=== PATIENT | female | born 1950 | race Hispanic/Latino ===

== ENCOUNTER 2017-04-30 10:41 | Inpatient (IN) | payer MEDICARE, BC ==
[2017-04-30 11:05] VITALS: BMI 22.1
--- NOTE | 2017-04-30 11:06 | ED PDOC ---
Arrival/HPI - General Historian: Patient - History of Present Illness Time/Duration: 4-6 hours Symptom Onset: Sudden Context: Tripped - General Chief Complaint: Trauma Time Seen by Provider: 04/30/17 10:44 - History of Present Illness Narrative History of Present Illness (Text): 04/30/17 11:02 66F w/no sig PMH evaluated s/p mechanical fall at approx 9am on day of evaluation. Pt reports missing top step of her outside/concrete steps, falling forward onto her porch with trauma to left eye with laceration and left upper extremity trauma. Pt went inside, cleaned up laceration and reported to ED. Admits to positional left upper extremity pain, "floppiness". Denies LOC, dizziness, GIRON, vision changes, history of falls, N/V/F/C, SOB, other complaints. PMH: Denies PSH: Denies All: Tetanus vaccine SH: 1/2ppd tobacco use x 20+ yrs, denies ETOH or illicit drugs (Toña Lou) Past Medical History - Provider Review Nursing Documentation Reviewed: Yes - Past History Past History: Non-Contributing - Tetanus Immunization Tetanus Immunization: Allergy to Tetanus Vaccine, Refused Family/Social History - Physician Review Nursing Documentation Reviewed: Yes Family/Social History: No Known Family HX Smoking Status: Heavy Smoker > 10 Cigarettes Daily Hx Alcohol Use: No Hx Substance Use: No Allergies/Home Meds Allergies/Adverse Reactions: Allergies Tetanus Vaccines and Toxoid Allergy (Intermediate, Verified 04/30/17 11:09) URTICARIA Home Medications: Home Meds Medication Instructions Recorded Confirmed Albuterol HFA [Ventolin HFA 90 1 puff INH PRN PRN 04/30/17 04/30/17 mcg/actuation (8 g)] Fluticasone/Salmeterol 100/50 1 puff PRN PRN 04/30/17 04/30/17 [Advair Diskus 100/50] Review of Systems - Physician Review All systems were reviewed & negative as marked: Yes - Review of Systems Constitutional: Normal Eyes: Normal ENT: Normal Respiratory: Normal Cardiovascular: Normal Gastrointestinal: Normal Musculoskeletal: Other (unable to move Left arm). absent: Normal Skin: Laceration (left eyebrow) Neurological: absent: Headache, Dizziness Physical Exam Vital Signs Reviewed: Yes Temperature: Afebrile Blood Pressure: Normal Pulse: Regular Respiratory Rate: Normal Appearance: Positive for: Non-Toxic, Comfortable Pain Distress: Mild Mental Status: Positive for: Alert and Oriented X 3 - Systems Exam Head: Present: Laceration (left lateral orbit). No: Atraumatic, Tenderness, Swelling, Ecchymosis, Abrasion Extroacular Muscles: Present: EOMI Conjunctiva: Present: Normal Ears: Present: Normal Mouth: Present: Moist Mucous Membranes Nose (External): Present: Atraumatic Neck: Present: Normal Range of Motion Respiratory/Chest: Present: Clear to Auscultation, Good Air Exchange. No: Respiratory Distress, Accessory Muscle Use Cardiovascular: Present: Regular Rate and Rhythm, Normal S1, S2. No: Murmurs Abdomen: Present: Normal Bowel Sounds. No: Tenderness, Distention, Peritoneal Signs Back: Present: Normal Inspection Upper Extremity: Present: Swelling (lateral aspect of left arm). No: Normal Inspection, Cyanosis, Edema, Normal ROM (decreased), Tenderness Lower Extremity: Present: Normal Inspection. No: Edema Neurological: Present: GCS=15, CN II-XII Intact, Speech Normal, Motor Func Grossly Intact Skin: Present: Warm, Dry, Laceration (left lateral orbit- stellate, 4 cm). No: Rashes, Normal Color Psychiatric: Present: Alert, Oriented x 3, Normal Insight, Normal Concentration Vital Signs Temp Pulse Resp BP Pulse Ox 04/30/17 13:40 98 H 18 119/77 100 04/30/17 11:05 98.3 F 83 18 100 04/30/17 11:04 18 Medical Decision Making ED Course and Treatment: Patient Seen With Resident: In agreement with resident note which contains more details about the patient. Patient was seen and evaluated with resident. Came up with plan and treatment together. (Marty Maldonado) 04/30/17 11:28 will image left upper extremity, then will close left orbital laceration. 04/30/17 13:41 laceration of left eyebrow closed with running subcuticular suture. X-rays of Left humerus with Oblique comminuted displaced fracture, consulted ortho. Awaiting call back. 04/30/17 14:[address] Ferreira who requests patient attend his office tomorrow for evaluation, pt is to sleep sitting up, ice area and have extremity placed in sling without any weight on elbow. 04/30/17 14:31 Pt requesting another ortho opinion- would like to have intervention today. Changed ortho consult to Dr. Coronado as per patient's request. Spoke with Dr. Coronado who requested pt have posterior split applied to Left extremity, will review imaging and make further recommendations after review. 04/30/17 15:[address] Hernadez who accepts patient to his service for admission. Pt to be pre-op'd for possible OR tomorrow with Dr. Coronado. 04/30/17 15:43 Spoke with resident for admission to [facility]'s service- will come do admission H & P. Spoke with patient, she verbalizes understanding of need for admission. (Toña Lou) - RAD Interpretation Radiology Orders: 04/30/17 11:14 FOREARM LEFT [RAD] Stat HUMERUS LEFT [RAD] Stat SHOULDER LEFT [RAD] Stat 04/30/17 11:25 Brain [HEAD W/O CONTRAST] [CT] Stat 04/30/17 15:05 CXR [CHEST PORTABLE] [RAD] Routine - Medication Orders Current Medication Orders: Albuterol/Ipratropium (Duoneb 3 Mg/0.5 Mg (3 Ml) Ud) 3 ml IH [id number] Discontinued Medications Ketorolac Tromethamine (Toradol) 30 mg IVP STAT STA Stop: 04/30/17 15:23 Last Admin: 04/30/17 15:39 Dose: 30 mg Lidocaine/Epinephrine (Lidocaine 1%/Epinephrine 1:[id number] 30 Ml) 10 ml IJ STAT STA Stop: 04/30/17 11:17 Last Admin: 04/30/17 11:26 Dose: 10 ml Comments: given by ER MD for suturing Procedure: Wound Repair - Time Performed Time Performed: 12:45 - Time Out Time Out: Side verified, Site verified, Patient ID confirmed, Sterile procedures obs. - Consent Obtained Consent obtained: Verbal - Performed by Performed by: Mid-level Provider - Indications Indication(s):: Laceration - Location Location:: Left, Face, Eyebrow Shape:: Stellate Dimensions Length cm: 4cm Dimensions width cm: 0.5cm Depth:: Subcutaneous fascia - Anesthetic Technique Anesthetic Technique: Local Local/Regional Anesthetic:: Lidocaine 1% w/epi - Debris Debris:: None - Irrigated Irrigated with ml of normal saline: 300 - Complexity Complexity:: Intermediate (2 layer) - Wound repair method Sutures:: # (4), Size (5), Type (chromic), Technique (running subcuticular) Barbi:: Steri-strips - Muscle repiar layer closed with Muscle repair layer closed with:: Tetanus NA (allergic) - Complications Complications: none - Patient tolerated procedure Patient Tolerated Procedure:: Well Disposition/Present on Arrival - Present on Arrival Any Indicators Present on Arrival: No History of DVT/PE: No Urinary Catheter: No History of Decub. Ulcer: No - Disposition Have Diagnosis and Disposition been Completed?: Yes Disposition Time: 14:05 Patient Plan: Discharge - Disposition Diagnosis: Fall (on) (from) other stairs and steps, initial encounter, Laceration of left eyebrow, Fracture of left upper extremity Disposition: HOME/ ROUTINE Patient Problems: Current Active Problems Problem Status Onset Fall (on) (from) other stairs and steps, initial encounter Acute Laceration of left eyebrow Acute Fracture of left upper extremity Acute Condition: STABLE Discharge Instructions (ExitCare): Arm Fracture in Adults (ED), Care For Your Absorbable Stitches (ED), Facial Laceration (ED) Additional Instructions: Sleep sitting up, do not place weight on left elbow. Apply ice to affected area. Call Dr. Ferreira's office for appointment. Please wear sling until you are evaluated. Referrals: PCP,NO [Non-Staff] - Follow up with primary Dwain Ferreira DO [Staff Provider] - Follow up with primary Forms: [email or web address] (Turkmen), WORK NOTE
[2017-04-30] MEDS ORDERED: Lidocaine 1%/Epinephrine 1:100000 30 ml vial IJ STA (11:16)
--- NOTE | 2017-04-30 12:23 | CT ---
PROCEDURE: CT HEAD WITHOUT CONTRAST. HISTORY: fall COMPARISON: None available. TECHNIQUE: Axial computed tomography images were obtained through the head/brain without intravenous contrast. Radiation dose: Total exam DLP = 725.71 mGy-cm. This CT exam was performed using one or more of the following dose reduction techniques: Automated exposure control, adjustment of the mA and/or kV according to patient size, and/or use of iterative reconstruction technique. FINDINGS: HEMORRHAGE: No intracranial hemorrhage. BRAIN: Normal souza-white matter differentiation and density are appreciated throughout the cerebrum cerebellum and brainstem. There is no mass effect. There is no suspicious extra-axial fluid collection in the midline brain anatomy appears diffusely unremarkable. VENTRICLES: Unremarkable. No hydrocephalus. CALVARIUM: Unremarkable. PARANASAL SINUSES: Mild left maxillary sinusitis identified. MASTOID AIR CELLS: Unremarkable as visualized. No inflammatory changes. OTHER FINDINGS: None. IMPRESSION: Normal CT of the Head. Instill note is made of mild left maxillary sinusitis.
--- NOTE | 2017-04-30 12:45 | RAD ---
PROCEDURE: Radiographs of the Left Shoulder HISTORY: s/p mechanical fall COMPARISON: No prior. FINDINGS: BONES: There is an obliquely oriented displaced comminuted fracture of the proximal shaft of the humerus. The shoulder is otherwise intact JOINTS: Normal. Glenohumeral and acromioclavicular joints preserved. No osteoarthritis. SOFT TISSUES: Normal. OTHER FINDINGS: None. IMPRESSION: There is an obliquely oriented displaced comminuted fracture of the proximal shaft of the humerus. The shoulder is otherwise intact
--- NOTE | 2017-04-30 12:46 | RAD ---
PROCEDURE: Radiographs of the left humerus. HISTORY: s/p mechanical fall COMPARISON: None. FINDINGS: BONES: Obliquely oriented comminuted displaced fracture of the mid humerus SOFT TISSUES: Normal. OTHER FINDINGS: None. IMPRESSION: Obliquely oriented comminuted displaced fracture of the mid humerus
--- NOTE | 2017-04-30 12:47 | RAD ---
PROCEDURE: Radiographs of the Left Forearm HISTORY: s/p [facility] [place] fall COMPARISON: None available. TECHNIQUE: Frontal and lateral views obtained. FINDINGS: BONES: No fracture or destructive lesion. JOINT SPACES: Unremarkable. OTHER FINDINGS: None. IMPRESSION: Unremarkable radiographs of the left forearm.
--- NOTE | 2017-04-30 16:29 | CP.PCM.HP ---
History of Present Illness - History of Present Illness History of Present Illness: Patient is a 66 year old female with past medical history of asthma, s/p R mastectomy with chemo/radiation presents to ED after having a mechanical fall outside of her home. States that she went to take out the garbage and on her way back to her home, she tripped over the top step, fell forward and hit the left side of her head and arm on a brick wall. Denies any loss of consciousness. Patient was able to get up and call her daughter for assistance. Patient denies headache, dizziness, sob, cp, palpitations, abdominal pain, numbness/tingling, loss of sensation, loss of bowel and bladder function, urinary symptoms, changes in bowel habits. 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[place] [place] Present on Admission - Present on Admission Any Indicators Present on Admission: No Review of Systems - Review of Systems All systems: reviewed and no additional remarkable complaints except - Constitutional Constitutional: absent: Chills, Fatigue, Fever, Headache, Weakness - EENT Eyes: absent: Blurred Vision, Change in Vision Ears: absent: Decreased Hearing, Dizziness - Cardiovascular Cardiovascular: absent: Chest Pain, Diaphoresis, Dyspnea, Lightheadedness, Palpitations - Respiratory Respiratory: absent: Cough, Dyspnea, Wheezing - Gastrointestinal Gastrointestinal: absent: Abdominal Pain, Constipation, Diarrhea, Nausea, Vomiting - Genitourinary Genitourinary: absent: Difficulty Urinating, Dysuria, Urinary Frequency - Musculoskeletal Musculoskeletal: absent: Numbness, Tingling - Neurological Neurological: absent: Confusion, Dizziness, Numbness, Headaches, Syncope, Weakness - Psychiatric Psychiatric: absent: Anxiety, Confusion, Depression Past Patient History - Tetanus Immunizations Tetanus Immunization: Allergy to Tetanus Vaccine, Refused - Past Social History Smoking Status: Heavy Smoker > 10 Cigarettes Daily - CARDIAC Hx Cardiac Disorders: No - PULMONARY Hx Asthma: Yes - NEUROLOGICAL Hx Neurological Disorder: No - HEENT Hx HEENT Problems: No - RENAL Hx Chronic Kidney Disease: No - ENDOCRINE/METABOLIC Hx Endocrine Disorders: No - HEMATOLOGICAL/ONCOLOGICAL Hx Blood Disorders: No - INTEGUMENTARY Hx Dermatological Problems: No - MUSCULOSKELETAL/RHEUMATOLOGICAL Hx Musculoskeletal Disorders: No - GASTROINTESTINAL Hx Gastrointestinal Disorders: No - GENITOURINARY/GYNECOLOGICAL Hx Genitourinary Disorders: No - PSYCHIATRIC Hx Substance Use: No - SURGICAL HISTORY Hx Mastectomy: Yes (right breast) Meds Allergies/Adverse Reactions: Allergies Allergy/AdvReac Type Severity Reaction Status Date / Time Tetanus Vaccines and Toxoid Allergy Intermediate URTICARIA Verified 04/30/17 11: 09 Physical Exam - Constitutional Appears: Well, No Acute Distress - Head Exam Head Exam: ATRAUMATIC, NORMAL INSPECTION - Eye Exam Eye Exam: EOMI, Normal appearance Pupil Exam: NORMAL ACCOMODATION - ENT Exam ENT Exam: Mucous Membranes Moist Additional comments: Laceration to L perioribtal area that has been sutured Laceration is clear/dry/intact with steristrips Bruising noted in the L temporal region - Respiratory Exam Respiratory Exam: Clear to Auscultation Bilateral, NORMAL BREATHING PATTERN. absent: Rales, Rhonchi, Wheezes - Cardiovascular Exam Cardiovascular Exam: REGULAR RHYTHM, +S1, +S2. absent: Systolic Murmur - GI/Abdominal Exam GI & Abdominal Exam: Normal Bowel Sounds, Soft. absent: Firm, Guarding, Rebound , Rigid, Tenderness - Rectal Exam Rectal Exam: Deferred - Extremities Exam Additional comments: L arm in posterior splint +radial pulses B/L - Back Exam Back exam: NORMAL INSPECTION - Neurological Exam Neurological exam: Alert, CN II-XII Intact, Oriented x3 - Psychiatric Exam Psychiatric exam: Normal Affect, Normal Mood - Skin Skin Exam: Dry, Normal Color, Warm Results - Vital Signs Recent Vital Signs: Last Vital Signs Temp 98.3 F 04/30/17 11:05 Pulse 98 H 04/30/17 13:40 Resp 18 04/30/17 13:40 BP 119/77 04/30/17 13:40 Pulse Ox 100 04/30/17 13:40 - Labs Result Diagrams: 04/30/17 17:50 Assessment & Plan - Assessment and Plan (Free Text) Assessment: 66 year old female with past medical history of asthma, s/p R mastectomy presents s/p mechanical fall outside her home. CT head only showing L maxillary sinusitis. Shoulder/Humerus xray showing obliquely oreintated displaced comminuted fracture of proximal shaft of the humerus. Plan: 1. L Humerus Fracture -Stable, afebrile -Pain control prn - Toradol, morphine -Ortho on consult, possible surgery tomorrow -NPO after midnight -Labs ordered: CBC, CMP, PT/PTT, beta HCG -F/U CXR and EKG 2. History of Asthma -Duonebs prn GI/DVT ppx -Protonix -SCDs
--- NOTE | 2017-04-30 17:06 | RAD ---
HISTORY: preop - humurus fx COMPARISON: No prior. FINDINGS: LUNGS: No active pulmonary disease. PLEURA: No significant pleural effusion identified, no pneumothorax apparent. CARDIOVASCULAR: Normal. OSSEOUS STRUCTURES: No significant abnormalities. VISUALIZED UPPER ABDOMEN: Normal. OTHER FINDINGS: Surgical clips in the right chest wall or lung inferolaterally. IMPRESSION: No acute infiltrate or pleural effusion. No pneumothorax bilaterally. Surgical clips in the right chest wall or right lung base laterally.
[2017-04-30 18:26] LABS: ALB/GLOB RATIO 1.7 (1.1-1.8); ALKALINE PHOSPHATASE 88 U/L (38-126); ALT/SGPT 44 U/L (7-56); AST/SGOT 32 U/L (14-36); BILIRUBIN,TOTAL 0.6 mg/dL (0.2-1.3); BLOOD UREA NITROGEN 16 mg/dL (7-21); CALCIUM 9.5 mg/dL (8.4-10.5); CARBON DIOXIDE 24 mmol/L (21-33); CHLORIDE 107 mmol/L (98-107); GFR AFRICAN-AMERICAN > 60; GLUCOSE,RANDOM 109 mg/dL (70-110); POTASSIUM 4.3 mmol/L (3.6-5.0); SODIUM 138 mmol/L (132-148); TOTAL PROTEIN 6.4 g/dL (5.8-8.3)
[2017-04-30] MEDS: Morphine 2 mg/ml ISec IM PRN (21:49)
[2017-04-30] MEDS ORDERED: Pneumococcal 23-Valent Vaccine IM ONE (22:14)
[2017-05-01] MEDS: Albuterol-Ipratrop 3 mg / 0.5 (3 ml) UD IH SCH ×4 (02:06→19:27)
[2017-05-01] MEDS: Morphine 2 mg/ml ISec IM PRN ×3 (02:57→21:28)
[2017-05-01] MEDS: Pantoprazole 40 mg EC Tab PO SCH (05:07)
[2017-05-01 07:18] LABS: MEAN CORPUSCULAR HGB CONC 32.3 g/dl (31.0-37.0); MEAN PLATELET VOLUME 8.7 fl (7.0-11.0); RED CELL DISTRIBUTION WIDTH 13.5 % (11.5-14.5); WHITE BLOOD COUNT 8.7 10^3/ul (4.5-11.0)
[2017-05-01 08:26] LABS: URINE BILIRUBIN NEGATIVE (NEGATIVE); URINE BLOOD SMALL (NEGATIVE); URINE GLUCOSE (UA) NEGATIVE (NEGATIVE); URINE KETONE NEGATIVE (NEGATIVE); URINE LEUKOCYTE ESTERASE SMALL Leu/uL (NEGATIVE); URINE PROTEIN 30 mg/dL (<30 mg/dL); URINE UROBILINOGEN 0.2 E.U./dL (<1 E.U./dL)
[2017-05-01 08:27] LABS: URINE APPEARANCE CLEAR (CLEAR); URINE COLOR YELLOW (YELLOW)
[2017-05-01 08:39] LABS: BLOOD UREA NITROGEN 18 mg/dL (7-21); CALCIUM 8.9 mg/dL (8.4-10.5); CARBON DIOXIDE 26 mmol/L (21-33); CHLORIDE 107 mmol/L (98-107); GFR AFRICAN-AMERICAN > 60; GLUCOSE,RANDOM 93 mg/dL (70-110); POTASSIUM 3.7 mmol/L (3.6-5.0); SODIUM 141 mmol/L (132-148)
[2017-05-01 08:50] LABS: URINE BACTERIA FEW (NEG); URINE RBC 0 - 2 /hpf (0-2); URINE WBC TNTC /hpf (0-6)
--- NOTE | 2017-05-01 09:44 | CARD ---
APPROVED REPORT EKG Measurement Heart [id number] <Conclusion> Normal sinus rhythm Possible Anterolateral infarct, age undetermined Abnormal ECG
--- NOTE | 2017-05-01 12:45 | CP.PCM.PN ---
Subjective - Date & Time of Evaluation Date of Evaluation: 05/01/17 Time of Evaluation: 07:00 - Subjective Subjective: Patient is a 66 year old female with past medical history of asthma, s/p R mastectomy with chemo/radiation presents to ED after having a mechanical fall outside of her home. States that she went to take out the garbage and on her way back to her home, she tripped over the top step, fell forward and hit the left side of her head and arm on a brick wall. Denies any loss of consciousness. Patient was able to get up and call her daughter for assistance. Patient was seen and evaluated bedside. Patient states decreased pain in the shoulder because of the pain medicine. Patient denies headache, dizziness, sob, cp, palpitations, abdominal pain, numbness/tingling, loss of sensation, loss of bowel and bladder function, urinary symptoms, changes in bowel habits or any other complaints. Patient is aware of the plan for surgery today. Objective - Vital Signs/Intake and Output Vital Signs (last 24 hours): Temp Pulse Resp BP Pulse Ox 99.0 F 75 18 110/52 L 97 05/01/17 08:00 05/01/17 08:00 05/01/17 08:00 05/01/17 08:00 05/01/17 08:00 Intake and Output: 05/01/17 05/01/17 06:59 18:59 Intake Total 480 Balance 480 - Medications Medications: Current Medications Albuterol/Ipratropium (Duoneb 3 Mg/0.5 Mg (3 Ml) Ud) 3 ml IH [id number] [facility] Last Admin: 05/01/17 07:39 Dose: 3 ml Ketorolac Tromethamine (Toradol) 15 mg IM Q6 PRN PRN Reason: Pain, moderate (4-7) Stop: 05/05/17 20:06 Last Admin: 05/01/17 08:18 Dose: 15 mg Morphine Sulfate (Morphine) 2 mg IM Q4H PRN PRN Reason: Pain, severe (8-10) Last Admin: 05/01/17 11:10 Dose: 2 mg Ondansetron HCl (Zofran Odt) 4 mg PO Q4H PRN PRN Reason: Nausea/Vomiting Pantoprazole Sodium (Protonix Ec Tab) 40 mg PO 0600 [facility] Last Admin: 05/01/17 05:07 Dose: Not Given - Labs Labs: 05/01/17 07:09 05/01/17 07:09 - Constitutional Appears: No Acute Distress - Head Exam Head Exam: ATRAUMATIC, NORMAL INSPECTION, NORMOCEPHALIC - Eye Exam Eye Exam: EOMI, Normal appearance - ENT Exam ENT Exam: Mucous Membranes Moist - Neck Exam Neck Exam: Normal Inspection. absent: Lymphadenopathy - Respiratory Exam Respiratory Exam: Wheezes, NORMAL BREATHING PATTERN - Cardiovascular Exam Cardiovascular Exam: REGULAR RHYTHM, +S1, +S2 - Extremities Exam Additional comments: unable to move left arm due to pain from fracture - Back Exam Back Exam: NORMAL INSPECTION - Neurological Exam Neurological Exam: Alert, Awake, Oriented x3 - Psychiatric Exam Psychiatric exam: Normal Mood Assessment and Plan - Assessment and Plan (Free Text) Assessment: 66 year old female with past medical history of asthma, s/p R mastectomy presents s/p mechanical fall outside her home. CT head only showing L maxillary sinusitis. Shoulder/Humerus xray showing obliquely oriented displaced comminuted fracture of proximal shaft of the humerus. Patient will undergoe surgery to correct fracture. Plan: 1. L Humerus Fracture -Stable, afebrile -Pain control prn - Toradol, morphine -NPO -Ortho on consult, surgery later on today -Labs ordered: CBC, CMP, PT/PTT, beta HCG 2. History of Asthma -Duonebs prn GI/DVT ppx -Protonix -SCDs
[2017-05-01] MEDS ORDERED: Bupivacaine 0.5% Inj(30mL) ONE (15:17)
[2017-05-01] MEDS ORDERED: Propofol 10 mg/ml Inj (20 ML) ONE (15:32)
[2017-05-01] MEDS ORDERED: Midazolam 2 MG/2 ML VIAL ONE (15:33)
[2017-05-01] MEDS ORDERED: Albuterol HFA 90 mcg/actuation (8 g) ONE (15:39)
[2017-05-01] MEDS ORDERED: Rocuronium 10 mg/ml (5 ml) ONE (17:24)
[2017-05-01] MEDS ORDERED: Neostigmine Methylsulfate 3mg/3ml Syringe IV ONE (19:17)
[2017-05-01] MEDS ORDERED: Oxycodone/Acetaminophen 5/325 mg Tab PO PRN (20:03)
--- NOTE | 2017-05-01 20:03 | PCM.SURG1 ---
Surgeon's Initial Post Op Note - Surgeon's Notes Surgeon: Bob Coronado MD Pattern Chart Writer: Robby Foster PA-C Type of Anesthesia: General Endo Anesthesia Administered By: Dr. Ngo Pre-Operative Diagnosis: L humeral shaft fx Operative Findings: same Post-Operative Diagnosis: same Operation Performed: Left humeral shaft ORIF Specimen/Specimens Removed: none Estimated Blood Loss: EBL {In ML}: 250 Blood Products Given: N/A Drains Used: No Drains Post-Op Condition: Fair Date of Surgery/Procedure: 05/01/17 Time of Surgery/Procedure: 20:03
--- NOTE | 2017-05-01 20:08 | OP ---
PROCEDURE DATE: 05/01/2017 PREOPERATIVE DIAGNOSIS: Left humeral shaft fracture. POSTOPERATIVE DIAGNOSIS: Left humeral shaft fracture. PROCEDURE: Open reduction and internal fixation of left humeral shaft fracture. SURGEON: Du Coronado MD ASSISTED BY: Evelio Connolly PA-C. Ms. Connolly was present throughout the entire case and assisted in fracture reduction, hardware replacement, and wound closure. TYPE OF ANESTHESIA: General. COMPLICATIONS: None. ESTIMATED BLOOD LOSS: 250 mL IMPLANT: Biomet long proximal humeral locking plate. INDICATIONS FOR PROCEDURE: This is a 66-year-old female who presented status post fall with left upper extremity pain and deformity. Clinical examination was consistent with pain with passive range of motion of the arm with obvious crepitus. On neurological exam, the patient was known to be intact. Radiographic examination was consistent with a long spiral oblique fracture extending to approximately 3 cm distal to the humeral head and distally extending to approximately 5 cm above the elbow. Recommendations are for open reduction and internal fixation of the fracture site. The risks, benefits, and alternatives were discussed with the patient including the possibility of nerve damage requiring repair and informed consent was obtained. DESCRIPTION OF PROCEDURE: After the surgical site was finally identified in the preoperative holding area, the patient was taken to the operating room and placed supine on the operating table. After administration of general anesthesia, the patient received 2 grams of Ancef IV. The patient's left upper was positioned on the fracture table. Care was taken to make sure all bony prominences and nerves were well padded and protected. Venodyne boots were placed on bilateral lower extremities and the left upper extremity was prepped and draped in the usual sterile fashion. The bony landmarks were identified and a long curvilinear incision was made starting from just distal to the coracoid in the deltopectoral groove and then extending laterally down towards the lateral epicondyle and lateral border of the biceps. The soft tissues were dissected bluntly down. The deltopectoral interval was developed. The long head of clavipectoral fascia was opened and long head of the biceps was exposed. Distally, the interval between the fascia of the biceps was opened and interval between the biceps and brachialis was exposed distally. Prior to splitting the brachialis distally, the radial nerve was identified just proximal to the elbow along the surface of the brachioradialis. This was traced proximally to lateral intermuscular septum. Once this was identified, the brachialis was split exposing the anterior cortex of the humeral shaft. At this point, all fracture hematoma was evacuated and the wound was irrigated with antibiotic saline solution. The patient was noted to have some comminution in a large butterfly fragment. At this point because of the position of the fragment to the radial nerve, decision was made to perform bridge plating. The bridge was applied to the bone and the plate was provisionally held using K-wires. Satisfied with the position of plate and nerve reduction, the fracture was fixed by first putting a locking screw in the distal shaft and a cortical screw in the proximal into the humeral head. Next, two additional locking screws were placed distally and three locking screws were placed in the humeral head. All the K-wires were removed and the cortical screw on the humeral head was then exchanged for a locking screw. At this point, x-rays were taken, which showed the fracture in general well alignment, a butterfly posterior spike was noted to be have some mild angulation on the lateral, but otherwise, the fracture appeared to be in overall good alignment. The wound was then copiously irrigated and closed in a layered fashion using 0 Vicryl, 2-0 Vicryl suture, and 3-0 nylon. Sterile dressing was applied and a posterior splint was placed. The left upper extremity was placed in the sling awakened, and taken to the recovery room in stable condition. Du Coronado MD
[2017-05-01] MEDS ORDERED: HYDROmorphone 0.5 mg/0.5 ml ISec IVP PRN (20:13)
[2017-05-01] MEDS ORDERED: Lactated Ringer's 1,000 ML IV SCH (20:15)
[2017-05-01] MEDS: ceFAZolin 2 GM in Sodium Chloride 0.9% 100 ML IVPB SCH (22:13)
[2017-05-01] MEDS ORDERED: ceFAZolin 2 GM in Sodium Chloride 0.9% 50 ML IVPB SCH (23:00)
[2017-05-02] MEDS: Albuterol-Ipratrop 3 mg / 0.5 (3 ml) UD IH SCH ×4 (01:38→19:48)
[2017-05-02] MEDS: Morphine 2 mg/ml ISec IM PRN ×2 (02:52→11:09)
[2017-05-02] MEDS: Pantoprazole 40 mg EC Tab PO SCH (07:07)
[2017-05-02] MEDS: ceFAZolin 2 GM in Sodium Chloride 0.9% 100 ML IVPB SCH (07:07)
[2017-05-02 07:30] LABS: HEMATOCRIT 35.7 % (36.0-48.0); MEAN CELL VOLUME 93.7 fl (80.0-105.0); MEAN CORPUSCULAR HEMOGLOBIN 29.7 pg (25.0-35.0); MEAN CORPUSCULAR HGB CONC 31.7 g/dl (31.0-37.0); RED CELL DISTRIBUTION WIDTH 13.3 % (11.5-14.5)
--- NOTE | 2017-05-02 08:42 | RAD ---
PROCEDURE: Fluoroscopy up to 1 hour HISTORY: O.R.I.F. LEFT HUMERUS COMPARISON: TECHNIQUE: Fluoroscopy was provided in the operating room. 140 seconds of fluoroscopy time were use. Three images were submitted FINDINGS: The study shows internal fixation of a humeral fracture with a plate and multiple screws IMPRESSION: As above
--- NOTE | 2017-05-02 08:47 | RAD ---
PROCEDURE: Left humerus portable HISTORY: pt in pacu s/p ORIF COMPARISON: TECHNIQUE: A portable film was obtained postop FINDINGS: There is a plate and multiple screws fixating an obliquely oriented fracture of the mid left humerus. IMPRESSION: As above
--- NOTE | 2017-05-02 10:14 | CP.PCM.PN ---
Subjective - Date & Time of Evaluation Date of Evaluation: 05/02/17 Time of Evaluation: 10:13 - Subjective Subjective: Pt is s/p ORIF left humerus. Pt is comfortable. Denies any numbness or tingling. Afebrile LUE: dressing and splint intact NVI distally 5/5 wrist extension POD #1 Pt stable for d/c today f/u in office Sunday Objective - Vital Signs/Intake and Output Vital Signs (last 24 hours): Temp Pulse Resp BP Pulse Ox 98.3 F 91 H 18 98/48 L 94 L 05/02/17 07:55 05/02/17 07:55 05/02/17 07:55 05/02/17 07:55 05/02/17 07:55 Intake and Output: 05/02/17 05/02/17 06:59 18:59 Intake Total 360 240 Balance 360 240 - Medications Medications: Current Medications Albuterol/Ipratropium (Duoneb 3 Mg/0.5 Mg (3 Ml) Ud) 3 ml IH [id number] [facility] Last Admin: 05/02/17 07:23 Dose: Not Given Ketorolac Tromethamine (Toradol) 15 mg IM Q6 PRN PRN Reason: Pain, moderate (4-7) Stop: 05/05/17 20:06 Last Admin: 05/01/17 08:18 Dose: 15 mg Morphine Sulfate (Morphine) 2 mg IM Q4H PRN PRN Reason: Pain, severe (8-10) Last Admin: 05/02/17 02:52 Dose: 2 mg Ondansetron HCl (Zofran Odt) 4 mg PO Q4H PRN PRN Reason: Nausea/Vomiting Ondansetron HCl (Zofran Inj) 4 mg IVP ONCE PRN PRN Reason: Nausea/Vomiting Oxycodone/Acetaminophen (Percocet 5/325 Mg Tab) 1 tab PO Q4H PRN PRN Reason: Pain, moderate (4-7) Stop: 05/04/17 20:04 Pantoprazole Sodium (Protonix Ec Tab) 40 mg PO 0600 [facility] Last Admin: 05/02/17 07:07 Dose: 40 mg - Labs Labs: 05/02/17 07:23 APTT 28.9 Seconds (23.7-30.8) 05/01/17 15:25
[2017-05-02] MEDS ORDERED: Calcitonin 200 Int Units/Inh Nasal Spray (3.7 ml) NS SCH (10:30)
--- NOTE | 2017-05-02 12:31 | CP.PCM.PN ---
Subjective - Date & Time of Evaluation Date of Evaluation: 05/02/17 Time of Evaluation: 06:15 - Subjective Subjective: Patient is a 66 year old female with past medical history of asthma, s/p R mastectomy with chemo/radiation presents to ED after having a mechanical fall outside of her home. States that she went to take out the garbage and on her way back to her home, she tripped over the top step, fell forward and hit the left side of her head and arm on a brick wall. Denies any loss of consciousness. Patient was able to get up and call her daughter for assistance. Patient was seen and evaluated bedside. Patient is s/p ORIF left humerus which was done yesterday. Patient is not in any acute distress. Patient denies fever, headache, dizziness, sob, cp, palpitations, abdominal pain, numbness/tingling, loss of sensation, loss of bowel and bladder function, urinary symptoms, changes in bowel habits or any other complaints. Objective - Vital Signs/Intake and Output Vital Signs (last 24 hours): Temp Pulse Resp BP Pulse Ox 98.3 F 91 H 18 98/48 L 94 L 05/02/17 07:55 05/02/17 07:55 05/02/17 07:55 05/02/17 07:55 05/02/17 07:55 Intake and Output: 05/02/17 05/02/17 06:59 18:59 Intake Total 360 500 Balance 360 500 - Medications Medications: Current Medications Albuterol/Ipratropium (Duoneb 3 Mg/0.5 Mg (3 Ml) Ud) 3 ml IH [id number] [facility] Last Admin: 05/02/17 07:23 Dose: Not Given Calcitonin Dex[place] (Miacalcin) 200 iu NS DAILY [facility] Last Admin: 05/02/17 11:40 Dose: 200 iu Calcium Carbonate (Caltrate) 600 mg PO DAILY [facility] Last Admin: 05/02/17 11:17 Dose: 600 mg Cholecalciferol (Vitamin D) 1,000 iu PO DAILY [facility] Last Admin: 05/02/17 10:57 Dose: 1,000 iu Ketorolac Tromethamine (Toradol) 15 mg IM Q6 PRN PRN Reason: Pain, moderate (4-7) Stop: 05/05/17 20:06 Last Admin: 05/01/17 08:18 Dose: 15 mg Morphine Sulfate (Morphine) 2 mg IM Q4H PRN PRN Reason: Pain, severe (8-10) Last Admin: 05/02/17 11:09 Dose: 2 mg Ondansetron HCl (Zofran Odt) 4 mg PO Q4H PRN PRN Reason: Nausea/Vomiting Ondansetron HCl (Zofran Inj) 4 mg IVP ONCE PRN PRN Reason: Nausea/Vomiting Oxycodone/Acetaminophen (Percocet 5/325 Mg Tab) 1 tab PO Q4H PRN PRN Reason: Pain, moderate (4-7) Stop: 05/04/17 20:04 Pantoprazole Sodium (Protonix Ec Tab) 40 mg PO 0600 [facility] Last Admin: 05/02/17 07:07 Dose: 40 mg - Labs Labs: 05/02/17 07:23 APTT 28.9 Seconds (23.7-30.8) 05/01/17 15:25 - Constitutional Appears: Non-toxic, No Acute Distress - Head Exam Head Exam: ATRAUMATIC, NORMAL INSPECTION, NORMOCEPHALIC - Eye Exam Eye Exam: EOMI, Normal appearance, PERRL - Neck Exam Neck Exam: absent: Lymphadenopathy, Tenderness - Respiratory Exam Respiratory Exam: Clear to Ausculation Bilateral, NORMAL BREATHING PATTERN - Cardiovascular Exam Cardiovascular Exam: REGULAR RHYTHM, +S1, +S2 - GI/Abdominal Exam GI & Abdominal Exam: Normal Bowel Sounds. absent: Tenderness - Extremities Exam Additional comments: left arm currently in sling, left wrist extension 5/5, strength 5/5 - Neurological Exam Neurological Exam: Alert, Awake, Oriented x3 - Psychiatric Exam Psychiatric exam: Normal Mood - Skin Skin Exam: Normal Color Assessment and Plan - Assessment and Plan (Free Text) Assessment: 66 year old female with past medical history of asthma, s/p R mastectomy presents s/p mechanical fall outside her home. CT head only showing L maxillary sinusitis. Shoulder/Humerus xray showing obliquely oriented displaced comminuted fracture of proximal shaft of the humerus. Patient is S/P ORIF of the left humerus. Plan: 1. L Humerus Fracture -Stable, afebrile -Pain control prn - Toradol, morphine, percocet -ORIF left humerus done yesterday -PT evaluation ordered -continue monitoring labs -possible osteoperosis, recommended outpatient follow up with possible dexa scan -vitamin D level ordered and given -Calcium given -caltinonin started 2. History of Asthma -Duonebs prn GI/DVT ppx -Protonix -SCDs
[2017-05-03] MEDS: Albuterol-Ipratrop 3 mg / 0.5 (3 ml) UD IH SCH ×2 (01:36→07:21)
[2017-05-03] MEDS: Pantoprazole 40 mg EC Tab PO SCH (06:09)
[2017-05-03 07:12] LABS: HEMATOCRIT 32.7 % (36.0-48.0); MEAN CELL VOLUME 93.7 fl (80.0-105.0); MEAN CORPUSCULAR HEMOGLOBIN 29.8 pg (25.0-35.0); MEAN CORPUSCULAR HGB CONC 31.8 g/dl (31.0-37.0); MEAN PLATELET VOLUME 9.3 fl (7.0-11.0); RED CELL DISTRIBUTION WIDTH 13.2 % (11.5-14.5); WHITE BLOOD COUNT 10.1 10^3/ul (4.5-11.0)
[2017-05-03 08:15] VITALS: RESP 18
--- NOTE | 2017-05-03 08:35 | CP.PCM.PN ---
Subjective - Date & Time of Evaluation Date of Evaluation: 05/03/17 Time of Evaluation: 08:34 - Subjective Subjective: Pt awake, alert. Feels better. Denies any numbness or tingling in LUE Afebrile LUE: sling and splint in place NVI distally Hg 10 POD#2 Plan for d/c home today Objective - Vital Signs/Intake and Output Vital Signs (last 24 hours): Temp Pulse Resp BP Pulse Ox 98.3 F 75 18 100/53 L 93 L 05/03/17 01:00 05/03/17 01:00 05/03/17 01:00 05/03/17 01:00 05/03/17 01:00 Intake and Output: 05/03/17 05/03/17 06:59 18:59 Intake Total 600 Balance 600 - Medications Medications: Current Medications Albuterol/Ipratropium (Duoneb 3 Mg/0.5 Mg (3 Ml) Ud) 3 ml IH [id number] [facility] Last Admin: 05/03/17 07:21 Dose: 3 ml Calcitonin [place]ore[place] (Miacalcin) 200 iu NS DAILY [facility] Last Admin: 05/02/17 11:40 Dose: 200 iu Calcium Carbonate (Caltrate) 600 mg PO DAILY [facility] Last Admin: 05/02/17 11:17 Dose: 600 mg Cholecalciferol (Vitamin D) 1,000 iu PO DAILY [facility] Last Admin: 05/02/17 10:57 Dose: 1,000 iu Morphine Sulfate (Morphine) 2 mg IM Q4H PRN PRN Reason: Pain, severe (8-10) Last Admin: 05/02/17 11:09 Dose: 2 mg Ondansetron HCl (Zofran Odt) 4 mg PO Q4H PRN PRN Reason: Nausea/Vomiting Ondansetron HCl (Zofran Inj) 4 mg IVP ONCE PRN PRN Reason: Nausea/Vomiting Oxycodone/Acetaminophen (Percocet 5/325 Mg Tab) 1 tab PO Q4H PRN PRN Reason: Pain, moderate (4-7) Stop: 05/04/17 20:04 Pantoprazole Sodium (Protonix Ec Tab) 40 mg PO 0600 [facility] Last Admin: 05/03/17 06:09 Dose: 40 mg - Labs Labs: 05/03/17 06:15 APTT 28.9 Seconds (23.7-30.8) 05/01/17 15:25
[2017-05-03 08:41] VITALS: BP 108/68; PULSE 62; TEMP 98.2; O2SAT 94
--- NOTE | 2017-05-03 13:22 | CP.PCM.DIS ---
Provider - Provider Date of Admission: 05/01/17 17:28 Attending physician: Arthur Davis MD Primary care physician: Deysi Davidson MD Time Spent in preparation of Discharge (in minutes): 70 Hospital Course - Lab Results Lab Results: Most Recent Lab Values WBC 10.1 10^3/ul (4.5-11.0) D 05/03/17 06:15 RBC 3.49 10^6/uL (3.5-6.1) L 05/03/17 06:15 Hgb 10.4 g/dL (12.0-16.0) L 05/03/17 06:15 Hct 32.7 % (36.0-48.0) L 05/03/17 06:15 MCV 93.7 fl (80.0-105.0) 05/03/17 06:15 MCH 29.8 pg (25.0-35.0) 05/03/17 06:15 MCHC 31.8 g/dl (31.0-37.0) 05/03/17 06:15 RDW 13.2 % (11.5-14.5) 05/03/17 06:15 Plt Count 315 10^3/uL (120.0-450.0) 05/03/17 06:15 MPV 9.3 fl (7.0-11.0) 05/03/17 06:15 APTT 28.9 Seconds (23.7-30.8) 05/01/17 15:25 Sodium 141 mmol/L (132-148) 05/01/17 07:09 Potassium 3.7 mmol/L (3.6-5.0) 05/01/17 07:09 Chloride 107 mmol/L (98-107) 05/01/17 07:09 Carbon Dioxide 26 mmol/L (21-33) 05/01/17 07:09 Anion Gap 12 (10-20) 05/01/17 07:09 BUN 18 mg/dL (7-21) 05/01/17 07:09 Creatinine 0.7 mg/dL (0.5-1.4) 05/01/17 07:09 Est GFR ( Amer) > 60 05/01/17 07:09 Est GFR (Non-Af Amer) > 60 05/01/17 07:09 Random Glucose 93 mg/dL (70-110) 05/01/17 07:09 Calcium 8.9 mg/dL (8.4-10.5) 05/01/17 07:09 Total Bilirubin 0.6 mg/dL (0.2-1.3) 04/30/17 17:50 AST 32 U/L (14-36) 04/30/17 17:50 ALT 44 U/L (7-56) 04/30/17 17:50 Alkaline Phosphatase 88 U/L (38-126) 04/30/17 17:50 Total Protein 6.4 g/dL (5.8-8.3) 04/30/17 17:50 Albumin 4.0 g/dL (3.0-4.8) 04/30/17 17:50 Globulin 2.4 gm/dL 04/30/17 17:50 Albumin/Globulin Ratio 1.7 (1.1-1.8) 04/30/17 17:50 25-OH Vitamin D Total 20.4 NG/ML (30.0-100.0) L 05/02/17 11:57 Urine Color Yellow (YELLOW) 05/01/17 08:22 Urine Appearance Clear (CLEAR) 05/01/17 08:22 Urine pH 6.0 (4.7-8.0) 05/01/17 08:22 Ur Specific [place] >= 1.030 (1.005-1.035) 05/01/17 08:22 Urine Protein 30 mg/dL (<30 mg/dL) H 05/01/17 08:22 Urine Glucose (UA) Negative mg/dL (NEGATIVE) 05/01/17 08:22 Urine Ketones Negative mg/dL (NEGATIVE) 05/01/17 08:22 Urine Blood Small (NEGATIVE) H 05/01/17 08:22 Urine Nitrate Negative (NEGATIVE) 05/01/17 08:22 Urine Bilirubin Negative (NEGATIVE) 05/01/17 08:22 Urine Urobilinogen 0.2 E.U./dL (<1 E.U./dL) 05/01/17 08:22 Ur Leukocyte Esterase Small Brad/uL (NEGATIVE) H 05/01/17 08:22 Urine RBC 0 - 2 /hpf (0-2) 05/01/17 08:22 Urine WBC Tntc /hpf (0-6) 05/01/17 08:22 Ur Epithelial Cells 1 - 3 /hpf (0-5) 05/01/17 08:22 Urine Bacteria Few (NEG) 05/01/17 08:22 Urine HCG, Qual Negative (NEGATIVE) 04/30/17 21:35 Blood Type O POSITIVE 04/30/17 17:50 Blood Type Confirm O POSITIVE 05/01/17 07:09 Antibody Screen Negative 04/30/17 17:50 BBK History Checked No verified bt 04/30/17 17:50 - Hospital Course Hospital Course: 66 years old female k/c of asthma, s/p mastectomy (chemo/radiation done) presented to ER after falling outside her home. She said that she went to take out the garbage and on her way back home she tripped over the top step, fell forward and hit the left side of her head and left arm on a brick wall. Head CT , xray of the chest, forearm, and shoulder were ordered and obtained. Head CT showed mild left maxillary sinusitis, Her shoulder XRAY showed oblique orientated displaced fracture of proximal shaft of humerus and forearm XRAY showed an obliquely oriented displaced fracture of mid humerus. Surgery was consulted and planned to repair the fracture. She underwent ORIF of left mid humerus. Her surgery and the post-surgical course was uneventful. She did not have a fever, vitals and CBC was stable. She was given pain medications as needed. Due to her age,fracture and xray, Vit D, Calcium and calcitonin were started. She was monitored for another day. PT evaluation was done. She was discharged on pain medication and recommended to get DEXA scan of her bones to check for osteoporosis. She was also told to follow up with her PMD as well as Dr. Sanchez. Patient understood the plan. Discharge Exam - Head Exam Head Exam: ATRAUMATIC, NORMAL INSPECTION, NORMOCEPHALIC Discharge Plan - Discharge Medications Prescriptions: Calcitonin ([place]) [Miacalcin] 200 iu NS DAILY #1 spr Cephalexin [cephalexin] 500 mg PO TID 7 Days cap Cholecalciferol [Vitamin D 1000 IU] 1,000 iu PO DAILY #30 tab oxyCODONE/Acetaminophen [Percocet 5/325 mg Tab] 1 tab PO Q4H PRN #15 tab PRN Reason: Pain, Moderate (4-7) Pantoprazole [Protonix EC Tab] 40 mg PO 0600 #30 ect - Follow Up Plan Condition: STABLE Disposition: HOME/ ROUTINE Instructions: Pneumococcal Vaccine for Adults (DC), Influenza Vaccine (DC), Fall Prevention (GEN), ORIF (DC), ORIF of Hip Fracture (DC) Additional Instructions: Follow up with Primary care physician in one week. Follow up with Dr Chua in 1 week time. Referrals: Deysi Davidson MD [Primary Care Provider] -
== END 2017-05-03 11:34 | disposition home or self-care (01) | DRG 494 ==
LOC: ED 10:41 → ERH 15:35 → 5RSO 18:42 → OBSVTOIN 05-01 17:28
PROVIDERS: ADMIT Internal Medicine; ATTEND Internal Medicine
PROC: 0PSG04Z Reposition Left Humeral Shaft with Internal Fixation Device, Open Approach (ICD-10-PCS; principal; 2017-05-01 14:00)
DX: S42.302A Unspecified fracture of shaft of humerus, left arm, initial encounter for closed fracture (principal); S01.112A Laceration without foreign body of left eyelid and periocular area, initial encounter; W10.9XXA Fall (on) (from) unspecified stairs and steps, initial encounter; Y93.01 Activity, walking, marching and hiking; F17.210 Nicotine dependence, cigarettes, uncomplicated; J32.0 Chronic maxillary sinusitis; J45.909 Unspecified asthma, uncomplicated; Z90.11 Acquired absence of right breast and nipple; Z92.21 Personal history of antineoplastic chemotherapy; Z92.3 Personal history of irradiation; Y92.008 Other place in unspecified non-institutional (private) residence as the place of occurrence of the external cause; Z79.899 Other long term (current) drug therapy